=== PATIENT | male | born 1960 | race Two or more races ===

== ENCOUNTER → 2019-12-02 | Day surgery (SDC) | payer OTHER ==
[2019-12-01 16:42] VITALS: BMI 27.4
[2019-12-02 12:50] VITALS: TEMP 97.4
[2019-12-02 13:21] VITALS: BP 122/76; PULSE 72
--- NOTE | 2019-12-03 17:32 | PATH ---
Surgical Pathology Report Patient Name: TA BLANCO [facility]. Rec. #: [id number] /Age/Gender: 1960 (Age: 59) / M Account: [id number] Location: U-ENDOSCOPY Taken: 12/02/2019 Received: 12/02/2019 Reported: 12/03/2019 Physicians: Bob Bray D.O. Specimen(s) Received A: RIGHT COLON POLYP B: SIGMOID POLYP C: RECTAL POLYP Clinical History Followup diverticulitis Postoperative diagnosis: Diverticulosis, colon polyps, hemorrhoids Final Diagnosis A. RIGHT COLON POLYP, BIOPSY: POLYPOID COLONIC MUCOSA WITH REACTIVE LYMPHOID AGGREGATES. B. SIGMOID POLYP, BIOPSY: COLONIC MUCOSA WITH REACTIVE LYMPHOID AGGREGATES. C. RECTAL POLYP, POLYPECTOMY: HYPERPLASTIC POLYP. Electronically Signed Buffy Briggs M.D. Gross Description A. Received in formalin, labeled "right colon polyp biopsy" is a chau, irregular portion of soft tissue measuring 0.1 cm. in greatest dimension. The specimen is submitted in toto in one cassette. B. Received in formalin, labeled "sigmoid polyp biopsy" are 2 chau, irregular portions of soft tissue measuring 0.3 and 0.6 cm. in greatest dimension. The specimens are submitted in toto in one cassette. C. Received in formalin, labeled "rectal polyp biopsy" are 3 chau, irregular portions of soft tissue ranging from 0.1-0.4 cm. in greatest dimension. The specimens are submitted in toto in one cassette. /12/02/2019 [place]12/02/2019
== END | disposition home or self-care (01) ==
LOC: JASU-ENDO 10:06
PROVIDERS: ATTEND Internal Medicine Gastroenterology
PROC: 0DBN8ZX Excision of Sigmoid Colon, Via Natural or Artificial Opening Endoscopic, Diagnostic (ICD-10-PCS; 2019-12-02)
PROC: 0DBP8ZX Excision of Rectum, Via Natural or Artificial Opening Endoscopic, Diagnostic (ICD-10-PCS; 2019-12-02)
PROC: 0DBK8ZX Excision of Ascending Colon, Via Natural or Artificial Opening Endoscopic, Diagnostic (ICD-10-PCS; principal; 2019-12-02 11:30)
DX: Z09 Encounter for follow-up examination after completed treatment for conditions other than malignant neoplasm (principal); Z87.19 Personal history of other diseases of the digestive system; D12.2 Benign neoplasm of ascending colon; D12.5 Benign neoplasm of sigmoid colon; K62.1 Rectal polyp; N40.0 Benign prostatic hyperplasia without lower urinary tract symptoms; K57.30 Diverticulosis of large intestine without perforation or abscess without bleeding; K64.8 Other hemorrhoids
CPT/HCPCS: 88305-TC

== ENCOUNTER 2019-12-09 10:40 | Day surgery (SDC) | payer OTHER ==
[2019-12-09 11:47] VITALS: BMI 25.9
[2019-12-09] MEDS ORDERED: MIDAZOLAM HCL 2 MG/2 ML SINGLE DOSE VIAL ONE (15:09)
[2019-12-09] MEDS ORDERED: PROPOFOL 20 ML ONE (15:09)
[2019-12-09] MEDS ORDERED: ceFAZolin SODIUM 1 GM VIAL IVPB ONE (15:40)
[2019-12-09] MEDS ORDERED: DESFLURANE GAS 240 ML BOTTLE IH ONE (15:49)
--- NOTE | 2019-12-09 16:29 | OP ---
Operative Note - Note: Operative Date: 12/09/19 Pre-Operative Diagnosis: bph with luts Operation: turp/tuvp Findings: trilobar prostate hypertrophy Post-Operative Diagnosis: Same as Pre-op Surgeon: Rain Romano Anesthesia: General Specimens Removed: prostate chips Estimated Blood Loss (mls): 50 Drains & Tubes with Location: 24f 30cc godwin Drains, Volume Out (mls): 0 Blood Volume Replaced (mls): 0 Fluid Volume Replaced (mls): 0 Operative Report Dictated: Yes
[2019-12-09] MEDS ORDERED: oxyCODONE HCL 5 MG TABLET PO PRN (17:08)
[2019-12-09] MEDS ORDERED: ONDANSETRON 4 MG/2 ML VIAL IVPUSH PRN (17:08)
[2019-12-09] MEDS ORDERED: LACTATED RINGERS SOLUTION 1,000 ML IV SCH (17:15)
--- NOTE | 2019-12-09 17:52 | OP ---
DATE OF OPERATION: 12/09/2019 PREOPERATIVE DIAGNOSIS: Benign prostatic hypertrophy with lower urinary tract symptoms. POSTOPERATIVE DIAGNOSIS: Trilobar hypertrophy of the prostate, trabeculated bladder. OPERATIVE PROCEDURE: Cystoscopy, transurethral resection of prostate, transurethral vaporization of prostate. SURGEON: Bijan Romano MD. ANESTHESIA: General anesthesia. DESCRIPTION OF PROCEDURE: Under above stated anesthesia, patient was prepped and draped in the usual sterile manner. He was placed in the dorsal lithotomy position. Cystoscopy revealed trilobar hypertrophy of the prostate. There was lateral lobe kissing. The bladder revealed a grade 2 trabeculation. Resectoscope was inserted. Resection of the prostate was commenced in the usual fashion. Prostate chips were evacuated with an Yasmo evacuator. Hemostasis was secured with electrocoagulation. A bipolar button was then introduced, and excess tissue was vaporized. No active bleeding was noted. Therefore, the bladder was emptied, the scope was removed. A 24 Arabic, 30 mL [place] was inserted. This was connected to a drainage bag. The patient tolerated the procedure well. He returned to the recovery room in good condition. Carlos [id number]
[2019-12-09 19:54] VITALS: BP 131/79; PULSE 57; TEMP 97.9
--- NOTE | 2019-12-12 15:48 | PATH ---
Surgical Pathology Report Patient Name: TA BLANCO [facility]. Rec. #: [id number] /Age/Gender: 1960 (Age: 59) / M Account: [id number] Location: [facility] SURGICAL Taken: 12/09/2019 Received: 12/10/2019 Reported: 12/12/2019 Physicians: Rain Romano M.D. Specimen(s) Received PROSTATE TISSUE Clinical History Hypertrophy of prostate Final Diagnosis PROSTATE TISSUE, TRANSURETHRAL RESECTION OF PROSTATE: BENIGN PROSTATIC TISSUE WITH FOCAL ACUTE AND CHRONIC INFLAMMATION, CYSTIC CHANGES, GLANDULAR AND STROMAL HYPERPLASIA. CYSTITIS CYSTICA AND CYSTITIS GLANDULARIS. Electronically Signed Kristen Sánchez M.D. Gross Description Received in formalin labeled "prostate tissue," is a 3 g, 4.2 x 3.5 x 0.3 cm aggregate of chau, firm to rubbery portions of tissue, consistent with prostate tissue. The formalin is filtered and the specimen is entirely submitted in 4 cassettes. /12/10/2019 [facility]12/10/2019
== END 2019-12-09 19:40 | disposition home or self-care (01) ==
LOC: JASU-SURG 10:40
PROVIDERS: ATTEND Urology
PROC: 0VB08ZZ Excision of Prostate, Via Natural or Artificial Opening Endoscopic (ICD-10-PCS; principal; 2019-12-09 13:00)
DX: N40.1 Benign prostatic hyperplasia with lower urinary tract symptoms (principal)
CPT/HCPCS: 87086; 88305-TC; 94760

== ENCOUNTER 2021-09-19 04:16 | Day surgery (SDC) | payer OTHER ==
[2021-09-13 16:19] VITALS: BMI 26.9
[2021-09-19] MEDS ORDERED: MIDAZOLAM HCL 2 MG/2 ML SINGLE DOSE VIAL ONE ×2 (10:09)
[2021-09-19 11:49] VITALS: BP 137/77; PULSE 61; TEMP 97.8
== END 2021-09-19 11:55 | disposition home or self-care (01) ==
LOC: JASU-SURG 04:16
PROVIDERS: ATTEND Urology
PROC: 0TF4XZZ Fragmentation in Left Kidney Pelvis, External Approach (ICD-10-PCS; principal; 2021-09-19 09:00)
DX: N20.0 Calculus of kidney (principal)

== ENCOUNTER 2021-10-04 05:22 | Day surgery (SDC) | payer OTHER ==
[2021-09-30 16:36] VITALS: BMI 27.1
[2021-10-04 09:10] VITALS: BP 122/85; PULSE 65; TEMP 97.5
== END 2021-10-04 09:10 | disposition home or self-care (01) ==
LOC: JASU-ENDO 05:22
PROVIDERS: ATTEND Internal Medicine Gastroenterology
PROC: 0DB68ZX Excision of Stomach, Via Natural or Artificial Opening Endoscopic, Diagnostic (ICD-10-PCS; 2021-10-04)
PROC: 0DB98ZX Excision of Duodenum, Via Natural or Artificial Opening Endoscopic, Diagnostic (ICD-10-PCS; principal; 2021-10-04 08:00)
DX: K29.50 Unspecified chronic gastritis without bleeding (principal)
CPT/HCPCS: 88305-TC; 88342-TC

== ENCOUNTER 2022-12-12 04:46 | Day surgery (SDC) | payer OTHER ==
[2022-12-08 11:34] VITALS: BMI 27.1
[2022-12-12 10:37] VITALS: TEMP 98
[2022-12-12 11:35] VITALS: BP 133/97; PULSE 59; RESP 15
== END 2022-12-12 11:15 | disposition home or self-care (01) ==
LOC: JASU-ENDO 04:46
PROVIDERS: ATTEND Internal Medicine Gastroenterology
PROC: 0DJD8ZZ Inspection of Lower Intestinal Tract, Via Natural or Artificial Opening Endoscopic (ICD-10-PCS; principal; 2022-12-12 12:30)
DX: Z12.11 Encounter for screening for malignant neoplasm of colon (principal); K57.30 Diverticulosis of large intestine without perforation or abscess without bleeding; K64.8 Other hemorrhoids

== ENCOUNTER 2023-03-29 04:06 | Day surgery (SDC) | payer OTHER ==
[2023-03-28 13:24] VITALS: BMI 28.9
[2023-03-29 12:23] VITALS: TEMP 97.7
[2023-03-29 12:57] VITALS: RESP 18
[2023-03-29 13:09] VITALS: BP 134/84; PULSE 59
== END 2023-03-29 13:25 | disposition home or self-care (01) ==
LOC: JASU-ENDO 04:06
PROVIDERS: ATTEND Internal Medicine Gastroenterology
PROC: 0DB78ZX Excision of Stomach, Pylorus, Via Natural or Artificial Opening Endoscopic, Diagnostic (ICD-10-PCS; 2023-03-29)
PROC: 0DB68ZX Excision of Stomach, Via Natural or Artificial Opening Endoscopic, Diagnostic (ICD-10-PCS; 2023-03-29)
PROC: 0DB98ZX Excision of Duodenum, Via Natural or Artificial Opening Endoscopic, Diagnostic (ICD-10-PCS; principal; 2023-03-29 11:00)
DX: K21.00 Gastro-esophageal reflux disease with esophagitis, without bleeding (principal); K29.70 Gastritis, unspecified, without bleeding; K31.7 Polyp of stomach and duodenum; K31.89 Other diseases of stomach and duodenum
CPT/HCPCS: 36415; 82941; 88305-TC; 88342-TC

== ENCOUNTER 2023-07-09 04:26 | Day surgery (SDC) | payer OTHER ==
[2023-07-04 13:08] VITALS: BMI 26.9
[2023-07-09] MEDS ORDERED: MIDAZOLAM HCL 2 MG/2 ML SINGLE DOSE VIAL ONE (17:54)
[2023-07-09] MEDS ORDERED: PROPOFOL 20 ML ONE (18:00)
[2023-07-09 18:50] VITALS: RESP 18
[2023-07-09 20:18] VITALS: BP 120/74; PULSE 68; TEMP 98
== END 2023-07-09 19:40 | disposition home or self-care (01) ==
LOC: JASU-SURG 04:26
PROVIDERS: ATTEND Urology
PROC: 0TF3XZZ Fragmentation in Right Kidney Pelvis, External Approach (ICD-10-PCS; principal; 2023-07-09 11:30)
DX: N20.0 Calculus of kidney (principal)